=== PATIENT | female | born 1945 | race African-American/Black ===

== ENCOUNTER 2021-09-12 10:26 | Outpatient (CLI) | payer MEDICARE, BC | END 2021-09-12 10:27 | disposition home or self-care (01) | LOC: CSHRAD 10:26 | PROVIDERS: ATTEND Student in an Organized Health Care Education/Training Program | DX: M17.12 Unilateral primary osteoarthritis, left knee (principal) ==

== ENCOUNTER 2021-10-03 10:26 | Outpatient (CLI) | payer MEDICARE, BC | END 2021-10-03 10:27 | disposition home or self-care (01) | LOC: CSHMAMMO 10:26 | PROVIDERS: ATTEND Student in an Organized Health Care Education/Training Program | DX: Z12.31 Encounter for screening mammogram for malignant neoplasm of breast (principal) | CPT/HCPCS: 77063; 77067 ==

== ENCOUNTER 2023-11-25 11:06 | Outpatient (CLI) | payer MEDICARE | END 2023-11-25 11:07 | disposition home or self-care (01) | LOC: CSHMAMMO 11:06 | PROVIDERS: ATTEND Student in an Organized Health Care Education/Training Program | DX: Z12.31 Encounter for screening mammogram for malignant neoplasm of breast (principal); Z80.3 Family history of malignant neoplasm of breast | CPT/HCPCS: 77063; 77067 ==